=== PATIENT | female | born 1935 | race Hispanic/Latino ===

== ENCOUNTER 2019-12-07 06:16 | Day surgery (SDC) | payer MEDICARE ==
[2019-12-07] MEDS ORDERED: ASPIRIN EC 325 MG TAB PO ONE ×2 (06:45→06:51)
[2019-12-07 07:05] LABS: Hematocrit 34.5 % (30.3-42.9); Hemoglobin 11.5 gm/dl (10.1-14.3); Mean Corpuscular HGB Conc 33 % (30-34); Mean Corpuscular Volume 91 fl (79-97); Platelet Count 201 K/mm3 (140-440); Red Blood Count 3.81 M/mm3 (3.65-5.03); Red Cell Distribution Width 16.7 % (13.2-15.2)
[2019-12-07] MEDS: SODIUM CHLORIDE 0.9% 500 ML 500 ML IV SCH ×2 (07:10→09:54)
[2019-12-07 07:14] LABS: BUN/Creatinine Ratio 18; Blood Urea Nitrogen 11 mg/dL (7-17); Calcium 9.5 mg/dL (8.4-10.2); Hemolysis Index 3
[2019-12-07 07:15] LABS: INR 0.95 (0.87-1.13)
[2019-12-07 07:16] LABS: Partial Thromboplastin Time 31.5 Sec. (24.2-36.6)
[2019-12-07 08:45] LABS: Band Neutrophils # (Manual) 0.1 K/mm3; Total Cells Counted 100
[2019-12-07 08:46] LABS: Anisocytosis Few; Platelet Estimate Consistent w Auto
[2019-12-07] MEDS ORDERED: HEPARIN 10,000 UNITS/10 ML VIAL ONE (09:19)
[2019-12-07] MEDS ORDERED: HEPARIN/NS 5000 UNIT/500ML 1,000 ML IR ONE (09:19)
[2019-12-07] MEDS ORDERED: NITROGLYCERIN SYRINGE 0 ML ONE (09:20)
[2019-12-07] MEDS ORDERED: VERAPAMIL 5 MG/2 ML INJ ONE (09:20)
[2019-12-07] MEDS: MIDAZOLAM 2 MG/2 ML INJ ONE ×2 (09:54→10:05)
[2019-12-07] MEDS: fentaNYL 100 MCG/2 ML INJ ONE ×2 (09:54→10:05)
[2019-12-07] MEDS: LIDOCAINE (2%) 20 MG/1 ML VIAL 20 ML MDV INFILTRATI ONE ×2 (09:54→10:08)
--- NOTE | 2019-12-07 11:08 | Discharge Summary ---
Short Stay Discharge Plan Activity: advance as tolerated Weight Bearing Status: Partial Weight Bearing Diet: low fat, low cholesterol, low salt Wound: keep clean and dry Special Instructions: no heavy lifting (for 72 hours) Follow up with: EDWIGE BORDEN MD [Primary Care Provider] - 7 Days DIMAS MEDINA MD [Staff Physician] - 7 Days
[2019-12-07] MEDS ORDERED: SODIUM CHLORIDE 0.9% 1000 ML 1,000 ML IV SCH (11:15)
--- NOTE | 2019-12-07 15:00 | Cardiac Catherization Report ---
CARDIAC CATHETERIZATION REPORT REASON FOR PROCEDURE: The patient is an 84-year-old woman with a remote history of bioprosthetic aortic valve replacement, now recommended for a cardiac catheterization to evaluate for coronary artery disease. PROCEDURES: 1. Left heart catheterization. 2. Selective left and right coronary angiography. 3. Left ventricular angiography. 4. Ascending aortic angiography. 5. Sedation time, start 10:04, end 10:36. DESCRIPTION OF PROCEDURE: The patient was prepped and draped in a sterile fashion after informed consent. The right femoral artery was entered using the Seldinger technique. We then inserted a dual lumen pigtail catheter into the left ventricle. Baseline left ventricular end-diastolic pressures were recorded. We also recorded baseline, simultaneous, transaortic pressure gradient using the dual lumen catheter. Left ventricular angiography was then performed. The pigtail was withdrawn into the ascending aorta and ascending aortic angiography was performed. We then proceeded with selective left and right coronary angiography. The left coronary system was done using a #4 left Cheryl and a #2 left Amplatz catheter was used for optimal angiography of the circumflex system. A #4 right Cheryl was then used for right coronary angiography. The catheters were then removed, sheath removed, and hemostasis achieved using an Angio-Seal device. The patient was returned to the postprocedure unit in stable condition. There were no complications. FINDINGS: HEMODYNAMICS: Left ventricular end-diastolic pressure was 20-23 at baseline. The left ventricular systolic pressure was 180 mmHg. Ascending aortic pressure was 150/64. Simultaneous transaortic pressure gradient revealed a [id number] systolic gradient of 32. The mean gradient was 28 mmHg. CORONARY ANGIOGRAPHY: The left main coronary artery was short, free of significant disease. There was mild ostial narrowing of the left anterior descending artery, followed by mild luminal irregularities of the proximal segment. The left anterior descending artery and its diagonal branches were otherwise angiographically normal. The circumflex artery was a large, dominant system. There was a 60% ostial stenosis of the first obtuse marginal branch. This first obtuse marginal branch was a very small caliber, less than 2 mm vessel. The rest of the circumflex including the large caliber AV groove vessel as well as a large mid obtuse marginal and distal obtuse marginals were all without significant disease. The right coronary artery was a relatively small caliber, codominant and also free of significant disease. There was normal left ventricular systolic function, ejection fraction 60%. Ascending aortic angiography: There was mild dilatation of the ascending aorta, trace to no significant regurgitation across the aortic bioprosthesis. CONCLUSION: 1. Moderate gradient across the aortic bioprosthesis, [id number] gradient of 32, mean gradient of 28. 2. Ostial stenosis of a small caliber first obtuse marginal branch of the circumflex, otherwise, essentially angiographically normal coronary vessels. 3. Well preserved left ventricular systolic function, ejection fraction 60%. 4. Mild ascending aortic dilatation. No significant aortic valve regurgitation. JOB# [id number] CIELO/NTS
[2019-12-07 16:01] VITALS: BP 120/64
== END 2019-12-07 16:04 | disposition home or self-care (01) ==
LOC: CATHLABREC 06:16
PROVIDERS: ATTEND Internal Medicine
DX: I11.0 Hypertensive heart disease with heart failure (principal); I50.9 Heart failure, unspecified; I25.10 Atherosclerotic heart disease of native coronary artery without angina pectoris; E78.00 Pure hypercholesterolemia, unspecified; M19.90 Unspecified osteoarthritis, unspecified site; F32.9 Major depressive disorder, single episode, unspecified; Z79.899 Other long term (current) drug therapy; Z98.890 Other specified postprocedural states
CPT/HCPCS: 36415; 80048; 85007; 85025; 85610; 85730; 93005; 93010; 93458; 99156; 99157; C1751; C1760; C1894; J1644; J2250; J3010; J7030; J7040; 93459; Q9967